=== PATIENT | male | born 1960 | race Caucasian/White ===

== ENCOUNTER 2019-12-23 18:59 | Emergency (ER) | payer OTHER ==
[2019-12-23] MEDS ORDERED: Adacel (T-DAP) 0.5 ML SYRINGE ONE (19:30)
[2019-12-23] MEDS ORDERED: Cephalexin 250 MG CAP ONE (19:30)
[2019-12-23] MEDS ORDERED: Bacitracin 1 PK ONE (20:00)
--- NOTE | 2019-12-23 21:22 | RAD ---
RIGHT INDEX FINGER THREE VIEWS: 12/23/19 A piece of a metallic nail is embedded in the mid portion of the index finger. It is probably embedd ed in the middle phalanx. The joints do not appear involved. IMPRESSION: Embedded foreign body as noted. POS: HOME
== END 2019-12-23 20:24 | disposition home or self-care (01) ==
LOC: BURERS 18:59
DX: S60.450A Superficial foreign body of right index finger, initial encounter (principal); F17.210 Nicotine dependence, cigarettes, uncomplicated; W29.4XXA Contact with nail gun, initial encounter; Y92.009 Unspecified place in unspecified non-institutional (private) residence as the place of occurrence of the external cause; Z23 Encounter for immunization
CPT/HCPCS: 90471; 90715

== ENCOUNTER 2022-02-16 02:41 | Emergency (ER) | payer OTHER ==
[2022-02-16] MEDS ORDERED: Morphine 4 MG/ML VIAL ONE ×2 (03:19→04:41)
[2022-02-16] MEDS ORDERED: Lidocaine 1% w/Epinephrine 1:100K 20 ML VIAL ONE (04:50)
[2022-02-16] MEDS ORDERED: Lidocaine 2% PF 5 ML VIAL ONE (04:50)
[2022-02-16] MEDS ORDERED: Lidocaine 1% PF 5 ML VIAL ONE ×2 (04:51→04:52)
[2022-02-16 05:07] LABS: #Basophils 0.1 thou/uL (0.0-0.2); #Eosinphils 0.1 thou/uL (0.0-0.7); #Lymphocytes 1.7 thou/uL (1.20-3.40); #Monocytes 1.4 thou/uL (0.11-0.59); %Basophils 0.6 % (0.0-1.0); %Eosinophils 0.7 % (0.0-10.0); %Lymphocytes 8.6 % (21.0-51.0); %Monocytes 7.3 % (0.0-10.0); %Neutrophils 82.8 % (42.0-75.0); Hemoglobin 13.6 g/dL (14.0-18.0); Mean Corpuscular HGB CONC 34.6 g/dL (32.0-36.0); Mean Corpuscular Hemoglobin 31.2 pg (27.0-31.0); Mean Platelet Volume 7.8 fL (7.4-10.4); Platelet Count 251 thou/uL (130-400); RBC Distribution Width 13.1 % (11.5-14.5); Red Blood Cell (RBC) Count 4.37 mill/uL (4.70-6.10); White Blood Cell (WBC) Count 19.3 thou/uL (4.8-10.8)
[2022-02-16 05:15] LABS: ALT (SGPT) 20 U/L (8-55); AST (SGOT) 20 U/L (5-34); Albumin 3.5 g/dL (3.4-4.8); Alkaline Phosphatase 109 U/L (40-110); Anion Gap 14 mmol/L (10-20); BUN (Urea Nitrogen) 21 mg/dL (8.4-25.7); Bilirubin, Total 0.3 mg/dL (0.2-1.2); CK (CPK) 230 U/L (30-200); Calc. Creatinine Clearance 0 mL/min (70-130); Calcium 8.5 mg/dL (7.8-10.44); Carbon Dioxide 22 mmol/L (23-31); Chloride 108 mmol/L (98-107); Estimated GFR 83; Glucose 116 mg/dL (80-115); Potassium 4.1 mmol/L (3.5-5.1); Prothrombin Time 13.1 sec (12.0-14.7); Sodium 140 mmol/L (136-145)
[2022-02-16 05:16] LABS: PTT 28.7 sec (22.9-36.1)
[2022-02-16 05:26] LABS: Globulin 2.2 g/dL (2.4-3.5); Protein, Total 5.7 g/dL (5.8-8.1)
== END 2022-02-16 05:25 | disposition short-term general hospital (02) ==
LOC: BURERS 02:41
DX: S82.142A Displaced bicondylar fracture of left tibia, initial encounter for closed fracture (principal); S91.101A Unspecified open wound of right great toe without damage to nail, initial encounter; F17.210 Nicotine dependence, cigarettes, uncomplicated; W01.0XXA Fall on same level from slipping, tripping and stumbling without subsequent striking against object, initial encounter
CPT/HCPCS: 12002; 36415; 80053; 82550; 85025; 85610; 85730; 96372; 96374; J2001; J2270